=== PATIENT | female | born 1975 | race Caucasian/White ===

== ENCOUNTER → 2020-04-24 09:59 | Outpatient (CLI) | payer SELFPAY | PROVIDERS: Visit Provider Emergency Medicine | DX: Z00.00 Encounter for general adult medical examination without abnormal findings (principal) ==

== ENCOUNTER → 2020-10-16 17:16 | Outpatient (CLI) | payer BC, SELFPAY ==
[2020-10-16 19:06] LABS: Basophils # 0.1 K/mm3 (0-0.2); Eosinophils # 0.1 K/mm3 (0.0-0.4); Eosinophils % 1.7 % (0.1-12.0); Hematocrit 44.3 % (37.0-47.0); Hemoglobin 14.5 g/dL (12.2-16.2); Lymphocytes # 2.5 K/mm3 (0.7-4.5); Mean Corpuscular HGB Conc 32.8 g/dL (31.8-35.4); Mean Corpuscular Hemoglobin 31.7 pg (27.0-31.2); Mean Corpuscular Volume 96.9 fl (81-99); Mean Platelet Volume 11.8 fl (7.4-10.4); Monocytes # 0.4 K/mm3 (0.1-1.0); Monocytes % 6.4 % (1.7-9.3); Neutrophils # 2.7 K/mm3 (1.8-7.8); Neutrophils % 46.9 % (37.0-80.0); Platelet Count 281 K/mm3 (142-424); Red Blood Count 4.57 M/mm3 (4.20-5.40); Red Cell Distribution Width 14.4 % (11.5-17.5); White Blood Count 5.6 K/mm3 (4.8-10.8)
[2020-10-16 19:25] LABS: Alanine Aminotransferase 24 U/L (12-78); Albumin Level 4.5 g/dl (3.5-5.0); Albumin/Globulin Ratio 1.4 (1.1-1.8); Alkaline Phosphatase 105 U/L (38-126); Anion Gap 15.9 mEq/L (5-15); Aspartate Amino Transferase 27 U/L (14-36); Bilirubin,Total 0.6 mg/dl (0.2-1.3); Blood Urea Nitrogen 13 mg/dl (7-17); Calcium 9.8 mg/dl (8.4-10.2); Carbon Dioxide 29 mmol/L (22.0-30.0); Chloride 100 mmol/L (98-107); Estimated Glomerular Filt Rate 91 ml/min (>60); GFR (African American) 111 ML/MIN (>60); Globulin 3.3 g/dL (1.3-3.2); Glucose 72 mg/dl (74-100); Potassium 4.9 mmoL/L (3.5-5.1); Sodium 140 mmol/L (136-145); Total Protein,Serum 7.8 g/dl (6.3-8.2)
[2020-10-16 19:30] LABS: C-Reactive Protein 7.3 mg/L (0-4)
[2020-10-16 19:36] LABS: Erythrocyte Sedimentation Rate 91 mm/hr (0-20)
[2020-10-16 19:45] LABS: 25-OH Vitamin D, Total 21.6 ng/mL (30-100)
[2020-10-16 19:56] LABS: Thyroid Stimulating Hormone 1.44 uIU/mL (0.465-4.68)
[2020-10-16 20:15] LABS: Vitamin B12 246 pg/mL (239-931)
[2020-10-19 15:05] LABS: Anti-Centromere B Antibodies <0.2 AI (0.0-0.9); Anti-Jo-1 <0.2 AI (0.0-0.9); Anti-Smith Antibody <0.2 AI (0.0-0.9); Antichromatin Antibodies <0.2 AI (0.0-0.9); Antiscleroderma-70 Antibodies <0.2 AI (0.0-0.9); RNP Antibodies 0.2 AI (0.0-0.9); Sjogren's Anti-SS-A <0.2 AI (0.0-0.9); Sjogren's Anti-SS-B <0.2 AI (0.0-0.9)
[2020-10-19 17:19] LABS: RA Latex Turbid. <10.0 IU/mL (0.0-13.9)
[2020-10-19 17:21] LABS: Anti-Cyclic Citrullinated Pept 3 units (0-19); Anti-DNA (DS) Ab Qn <1 IU/mL (0-9)
== END ==
PROVIDERS: Visit Provider Physician Assistant
DX: M25.50 Pain in unspecified joint (principal); E55.9 Vitamin D deficiency, unspecified
CPT/HCPCS: 80053; 82306; 82607; 84443; 85025; 85651; 86140; 86200; 86225; 86235; 86431; 86618

== ENCOUNTER 2021-10-24 08:03 | Emergency (ER) | payer OTHER, SELFPAY ==
[2021-10-24 08:11] VITALS: BP 130/89; PULSE 83; RESP 18; TEMP 37.1; O2SAT 96; BMI 29.2
--- NOTE | 2021-10-24 08:34 | HMH.EDEYEP ---
ED Disposition Clinical Impression: Zoster Qualifiers: Herpes zoster complications: without complications Qualified Code(s): B02.9 - Zoster without complications Disposition: Home, Self-Care Condition on Discharge: Good Instructions: DI for Shingles Prescriptions: Erythromycin Base [Erythromycin 1gm opth ointment] 1 applicatio EYE-RIGHT QID 5 Days #1 gm Transmission Status: Pending to [facility] methylPREDNISolone [Medrol 4mg tab] 4 mg PO DIRECTED #21 tab Transmission Status: Pending to [facility] Valacyclovir HCl [Valacyclovir] 1,000 mg PO TID 7 Days #21 tab Transmission Status: Pending to [facility] Referrals: Ashley Fermin PA [Primary Care Provider] - Corina Chaidez [Other] - Critical Care Critical Care Time: No Attestation: On 10/24/21, the high probability of a clinically significant, sudden or life threatening deterioration of the following system(s) required my full and direct attention, intervention and personal management. The time I documented below is in addition to time spent performing reported procedures but includes the following listed in this critical care notation. Medical Decision Making - Medical Records Medical records reviewed: Yes: I reviewed the patient's medical records. - Angelito Inquiry Pt receiving controlled substance: No Vital Signs: 10/24/21 08:11 Temperature 98.7 F Temperature Source Oral Pulse Rate [Right Radial] 83 Respiratory Rate 18 Blood Pressure [Right Arm] 130/89 Blood Pressure Mean [Right Arm] 102 Blood Pressure Source [Right Arm] Automatic Cuff Blood Pressure Position [Right Arm] Supine 02 Sat by Pulse Oximetry 96 Oxygen Delivery Method Room Air Orders (Tests/Meds): ED MEDICATIONS Discontinued Medications Generic Name Dose Route Start Last Admin Trade Name Freq PRN Reason Stop Dose Admin Ibuprofen 800 mg 10/24/21 08:21 10/24/21 08:30 Ibuprofen 400 Mg Tablet PO 10/24/21 08:22 800 mg ONCE ONE Administration Prednisone 60 mg 10/24/21 08:21 10/24/21 08:30 Prednisone 20mg Tab PO 10/24/21 08:22 60 mg ONCE ONE Administration Medical Decision Narrative: 46-year-old female presented to the emergency department with a rash on the right side of her face. Findings are very consistent with zoster. Patient states that she has had this before in the past. Appears to be isolated to her face, is extending towards the eye. There is no ocular involvement on our initial evaluation and examination. However given the close nature, I do believe she requires a follow-up with ophthalmology. We will place the patient on antiviral as well as steroids. Patient is to proceed to ophthalmology upon discharge. Given strict return precautions. Verbalized understanding. Eye Problem HPI - General Chief complaint: Eye Problems Stated complaint: right eye pain Time Seen by Provider: 10/24/21 08:34 Mode of Arrival: Ambulatory Limitations: No Limitations Description of Symptoms (Recalled from ER Triage Doc. by RN): Pt stated that on thursday she started with a few red bumps on the right side of her face. She states that it has progressivly gotten worse over the last few days. She has had a hx of shingles before. She woke up this morning with her eye swelling, red, burning, and bumps. - History of Present Illness HPI Narrative: Is a 46-year-old female presented to the emergency department with a rash on the right side of her face. The patient states that she has had shingles before in the same area and it feels like that. She states that yesterday she noticed some blisters popping up on the right side of her face and going towards her right eye. States that they are very painful. She not been having any discharge from the area. Patient is not having any fevers or chills. She denies any change in vision or eye pain. States that when she woke up this morning she did have some crusting of her eye.
[2021-10-24 08:58] VITALS: BP 130/89; PULSE 70; RESP 16; TEMP 36.8; O2SAT 98
== END 2021-10-24 08:59 | disposition home or self-care (01) ==
PROVIDERS: Emergency Provider Emergency Medicine; PCP Physician Assistant
DX: B02.9 Zoster without complications (principal)
CPT/HCPCS: 99281

== ENCOUNTER → 2021-12-18 13:53 | Outpatient (CLI) | payer OTHER, SELFPAY | PROVIDERS: Visit Provider Nurse Practitioner | DX: Z20.822 Contact with and (suspected) exposure to COVID-19 (principal) | CPT/HCPCS: C9803; U0003; U0005 ==

== ENCOUNTER → 2021-12-20 11:08 | Outpatient (CLI) | payer OTHER, SELFPAY ==
[2021-12-20 11:16] LABS: Influenza A, PCR Not Detected (NotDetected); Influenza B, PCR Not Detected (NotDetected)
[2021-12-20 11:47] LABS: Coronavirus 19, PCR Detected (NotDetected)
== END ==
PROVIDERS: Visit Provider Nurse Practitioner
DX: U07.1 COVID-19 (principal)
CPT/HCPCS: C9803; U0003; U0005

== ENCOUNTER → 2022-01-30 11:40 | Outpatient (CLI) | payer OTHER, SELFPAY ==
[2022-01-30 12:21] LABS: Basophils # 0.1 K/mm3 (0-0.2); Basophils % 1.6 % (0.1-2.0); Eosinophils # 0.1 K/mm3 (0.0-0.4); Eosinophils % 1.4 % (0.1-12.0); Hematocrit 43.4 % (37.0-47.0); Lymphocytes # 2.4 K/mm3 (0.7-4.5); Lymphocytes % 41.6 % (10-50); Mean Corpuscular HGB Conc 32.2 g/dL (31.8-35.4); Mean Corpuscular Hemoglobin 31.4 pg (27.0-31.2); Mean Corpuscular Volume 97.5 fl (81-99); Mean Platelet Volume 9.5 fl (7.4-10.4); Monocytes # 0.3 K/mm3 (0.1-1.0); Monocytes % 5.6 % (1.7-9.3); Neutrophils # 2.9 K/mm3 (1.8-7.8); Neutrophils % 49.7 % (37.0-80.0); Platelet Count 282 K/mm3 (142-424); Red Blood Count 4.45 M/mm3 (4.20-5.40); Red Cell Distribution Width 13.4 % (11.5-17.5); White Blood Count 5.9 K/mm3 (4.8-10.8)
[2022-01-30 13:02] LABS: Alanine Aminotransferase 26 U/L (12-78); Albumin Level 4.3 g/dl (3.5-5.0); Albumin/Globulin Ratio 1.4 (1.1-1.8); Alkaline Phosphatase 94 U/L (38-126); Anion Gap 11.5 mEq/L (5-15); Aspartate Amino Transferase 25 U/L (14-36); Bilirubin,Total 0.6 mg/dl (0.2-1.3); Blood Urea Nitrogen 12 mg/dl (7-17); Calcium 9.1 mg/dl (8.4-10.2); Carbon Dioxide 29 mmol/L (22.0-30.0); Chloride 102 mmol/L (98-107); Chol/HDL Ratio 5.6 (1-3.5); Cholesterol 220 mg/dl (140-200); Estimated Glomerular Filt Rate 109 ml/min (>60); GFR (African American) 131 ML/MIN (>60); Glucose 98 mg/dl (74-100); HDL Cholesterol 39 mg/dl (40-60); Potassium 4.5 mmoL/L (3.5-5.1); Sodium 138 mmol/L (136-145); Total Protein,Serum 7.3 g/dl (6.3-8.2); Triglycerides 131 mg/dl (30-150); VLDL Cholesterol 26 mg/dL (0-40)
[2022-01-30 13:13] LABS: Direct LDL Cholesterol 143.66 mg/dL (100-129)
[2022-01-30 13:18] LABS: 25-OH Vitamin D, Total 19.3 ng/mL (30-100)
[2022-01-30 13:33] LABS: Thyroid Stimulating Hormone 1.65 uIU/mL (0.465-4.68)
[2022-01-30 13:51] LABS: Vitamin B12 292 pg/mL (239-931)
== END ==
PROVIDERS: Visit Provider Physician Assistant
DX: Z00.00 Encounter for general adult medical examination without abnormal findings (principal); R53.83 Other fatigue
CPT/HCPCS: 80053; 80061; 82306; 82607; 84443; 85025

== ENCOUNTER → 2022-02-03 13:00 | Outpatient (CLI) | payer OTHER, SELFPAY ==
--- NOTE | 2022-02-03 13:00 | MM_ITS ---
PROCEDURE INFORMATION: Exam: MG Bilateral Screening 3D Mammography Exam date and time: 02/03/2022 1:00 PM Age: 47 years old Clinical indication: Breast cancer screening TECHNIQUE: Imaging protocol: Bilateral Screening tomosynthesis and 2D mammography including computer-aided detection (CAD) when performed. COMPARISON: MG MM MAMMO DIGITAL KLEBER SCREEN BILAT 06/28/2019 10:58 AM FINDINGS: MAMMOGRAPHY: Breast composition: The breast tissue is heterogeneously dense, which may obscure small masses. Mass: None. Architectural distortion: None. Calcifications: No suspicious calcifications. Asymmetric density: None. Skin thickening: None. Axillary adenopathy: None. IMPRESSION: No mammographic evidence of malignancy. Annual screening is recommended unless otherwise clinically indicated. ASSESSMENT: BI-RADS Category 1: Negative
== END ==
PROVIDERS: PCP Physician Assistant; Visit Provider Physician Assistant
DX: Z12.31 Encounter for screening mammogram for malignant neoplasm of breast (principal)
CPT/HCPCS: 77063; 77067

== ENCOUNTER → 2022-06-14 18:36 | Outpatient (CLI) | payer OTHER, SELFPAY ==
[2022-06-14 18:49] LABS: Coronavirus 19, PCR Not Detected (NotDetected); Influenza A, PCR Not Detected (NotDetected); Influenza B, PCR Not Detected (NotDetected)
== END ==
PROVIDERS: PCP Physician Assistant; Visit Provider Nurse Practitioner Family
DX: Z20.822 Contact with and (suspected) exposure to COVID-19 (principal)
CPT/HCPCS: C9803; U0003; U0005

== ENCOUNTER 2022-10-12 16:00 | Emergency (ER) | payer OTHER, SELFPAY ==
[2022-10-12 16:01] VITALS: BP 111/83; PULSE 108; RESP 18; TEMP 36.7; O2SAT 97; BMI 29.9
--- NOTE | 2022-10-12 16:29 | XR_ITS ---
PROCEDURE INFORMATION: Exam: XR Left Shoulder Exam date and time: 10/12/2022 4:27 PM Age: 47 years old Clinical indication: Injury or trauma; Sprain or strain; Shoulder; Left; Additional info: Injury-- TECHNIQUE: Imaging protocol: Radiologic exam of the Left shoulder. Views: 2 or more views. COMPARISON: No relevant prior studies available. FINDINGS: Bones/joints: Osseous structures are unremarkable. Joint surfaces are preserved. There is no fracture, malalignment or underlying osseous lesion detected. Soft tissues: Normal. IMPRESSION: 1. Normal left shoulder 2. The
--- NOTE | 2022-10-12 17:02 | HMH.EDGENADL ---
Discharge Plan Disposition Patient Disposition: Home, Self-Care Condition: Good Chief Complaint: PAIN Prescriptions Prescriptions: No Action phentermine [Adipex-P] 37.5 mg tablet 37.5 mg PO DAILY Qty: 30 0RF Rx Instructions: must administer 30 minutes before or 1-2 hours after breakfast citalopram 20 mg tablet 20 mg PO DAILY Qty: 90 3RF cholecalciferol (vitamin D3) 1,250 mcg (50,000 unit) capsule 1,250 mcg PO WEEKLY Qty: 14 0RF cholecalciferol (vitamin D3) 25 mcg (1,000 unit) capsule 25 mcg PO DAILY Qty: 90 3RF Referrals Follow up/Referrals: Ashley Fermin PA [Primary Care Provider] - See instructions Carson Camacho DO [Staff Physician] - See instructions Activity Restrictions/Add. Instructions Additional Instructions/Restrictions: Ibuprofen as needed for pain. Follow-up with orthopedics if not improved in 4 to 5 days. Clinical Impressions Clinical Impression: Left shoulder strain Instructions Patient Instructions: DI for Shoulder Sprain Discharge ED Provider: [facility] General Adult HPI General Stated complaint: Hurt left shoulder moving patient from stretch Time Seen by Provider: 10/12/22 17:14 History of Present Illness HPI narrative: Patient complains of a left shoulder injury. 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 The patient grabbed her left upper arm and pulled on it as she was pushing the patient. She feels like it strained her left shoulder and she has had achiness anteriorly since. She feels able to work and states she does not want to miss work. Related Data Previous Rx's Medication Instructions Recorded citalopram 20 mg tablet 20 mg PO DAILY #90 tabs 01/22/22 cholecalciferol (vitamin D3) 1,250 1,250 mcg PO WEEKLY #14 caps 02/05/22 mcg (50,000 unit) capsule cholecalciferol (vitamin D3) 25 25 mcg PO DAILY #90 caps 02/05/22 mcg (1,000 unit) capsule phentermine 37.5 mg tablet 37.5 mg PO DAILY #30 tabs 10/07/22 (Adipex-P) Allergies Allergy/AdvReac Type Severity Reaction Status Date / Time codeine Allergy Mild Vomiting Verified 10/07/22 10:12 Sulfa (Sulfonamide AdvReac Mild Rash Verified 10/07/22 10:12 Antibiotics) PFSH PFSH Medical History Anxiety and depression Obesity Social History Smoking Status: Never smoker alcohol intake: never substance use type: denies use current occupational status: employed Travel in the last 8 weeks: None ROS Obtained: Yes Systems reviewed as appropriate & no additional complaints except as documented Constitutional Constitutional: Denies weakness Musculoskeletal Musculoskeletal: Reports arthralgias (Left shoulder) and Denies numbness Neurologic Neurologic: Denies numbness and Denies weakness Physical Exam General General appearance: alert and in no apparent distress Chest Chest inspection: Present normal inspection and symmetric chest wall rise Respiratory Respiratory exam: Absent respiratory distress Cardiovascular Cardiovascular exam: Present regular rate Expanded Upper Extremity Exam Left: Shoulder exam: Present normal inspection, full ROM and tenderness; Absent swelling, ecchymosis, deformity, crepitus, dislocation or tenderness over AC joint Comment: Anterior shoulder tenderness. Full range of motion. Neurovascular intact. Neurological Exam Neurological exam: Present alert and oriented X3 Psychiatric Psychiatric exam: Present normal affect and normal mood Skin Skin exam: Present warm and dry Medical Decision Making Angelito Inquiry Pt receiving controlled substance: No Orders (Tests/Meds): ORDERS Category Date Time Status Shoulder XR left minimum 2 views [XR shoulder LT min 2V Exams 10/12/22 16:29 Completed ] Stat Radiology Data #1: Image(s): Shylatelly
--- NOTE | 2022-10-12 17:16 | PC.NURSE ---
contacted lab about drug screen needed
[2022-10-12 18:11] VITALS: BP 111/83; PULSE 108; RESP 18; TEMP 36.7; O2SAT 97
== END 2022-10-12 18:12 | disposition home or self-care (01) ==
PROVIDERS: Emergency Provider Emergency Medicine; PCP Physician Assistant
DX: S46.012A Strain of muscle(s) and tendon(s) of the rotator cuff of left shoulder, initial encounter (principal); E66.9 Obesity, unspecified; Z68.30 Body mass index [BMI] 30.0-30.9, adult; F32.A Depression, unspecified; F41.9 Anxiety disorder, unspecified; Z79.899 Other long term (current) drug therapy; Z88.2 Allergy status to sulfonamides; Z88.5 Allergy status to narcotic agent
CPT/HCPCS: 73030; 99283

== ENCOUNTER → 2022-11-28 08:13 | Outpatient (CLI) | payer OTHER, SELFPAY ==
--- NOTE | 2022-11-28 08:13 | MR_ITS ---
FINAL REPORT TECHNIQUE: Multiplanar MR without contrast CLINICAL HISTORY: weakness and shoulder pain since moving patient on October 12. limited rom. FINDINGS: Marrow signal: Unremarkable Glenohumeral joint: Physiologic effusion. No significant degenerative changes. AC joint: No obvious impingement. No significant hypertrophic changes. Rotator cuff: No evidence of tear Labrum: Normal morphology without tear Biceps tendon: Intra-articular long head biceps tendon intact. IMPRESSION: No evidence of rotator cuff or labral tear. Reviewed, Interpreted and Dictated by Dale Saravia MD Transcribed by Marian Amezquita Authenticated and [facility]
== END ==
PROVIDERS: PCP Physician Assistant; Visit Provider Orthopaedic Surgery
DX: M25.512 Pain in left shoulder (principal); S46.912A Strain of unspecified muscle, fascia and tendon at shoulder and upper arm level, left arm, initial encounter
CPT/HCPCS: 73221

== ENCOUNTER 2023-02-03 08:00 | Outpatient (RCR) | payer OTHER, SELFPAY ==
--- NOTE | 2022-12-30 11:23 | HMH.OTOPEV ---
OT Inpatient Evaluation Rehab OT Outpatient Eval Start: 12/30/22 10:28 Freq: Status: Active Protocol: Document 12/30/22 10:29 RMMARI (Rec: 12/30/22 11:23 [facility]ADET[facility] [id number]) E-signed By Sharifa Jackson, OT Outpatient Therapy Subjective History Subjective History Pt is seen this date (12/30/22) for OT inital evaluation for L shoulder pain and decreased AROM. Pt recalls injuring the L shoulder on 10/12/22 when transferring a pt and said pt grabbed on her shoulder and pushed. Pt had an MRI completed ~ 2 weeks ago on L shoulder with Glenohumeral joint: Physiologic effusion. 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 She is R hand dominant. Pt has a past medical history of anemia and cerevical cancer. Chief Complaint Pain,Stiff,Weakness Symptom Type Ache,Throb,Sharp,Burning Symptoms Relieved By OTC Meds Symptoms Aggravated By Physical Activity,Lifting Prior Functional Limitations None Current Functional Limitations Reaching,Lifting,Housework, Dressing,Sleeping Symptom Description Constant but Variable Level of pain today (0-10) 2 Pain scale - at its best (0-10) 2 Pain scale - at its worst (0-10) 7 Shoulder/Elbow Eval Shoulder Objective Measurements Shoulder ROM Left Shoulder Abduction Active Range of 70 Motion (degrees) Shoulder Flexion Active Range of Motion 105 (degrees) Query Text: Shoulder External Rotation Active Range 40 of Motion (degrees) Shoulder Internal Rotation Active Range 50 of Motion (degrees) pain with active ROM shoulder exam left standard pain with passive ROM shoulder exam left standard decreased ROM shoulder exam standard left Shoulder MMT Shoulder Abduction Strength Grade 3 Fair Shoulder Flexion Strength Grade 3- Fair- Shoulder External Rotation Strength 3- Fair- Grade Shoulder Internal Rotation Strength 3 Fair Grade Shoulder Strength Patient Testing Sitting Position
--- NOTE | 2023-01-29 11:39 | HMH.OTOPEV ---
OT Inpatient Evaluation Rehab OT Outpatient Eval Start: 12/30/22 10:28 Freq: Status: Active Protocol: Document 12/30/22 10:29 RMMARI (Rec: 12/30/22 11:23 RMJADESELECT [facility]ICAL [facility]AWComfort [id number]) E-signed By Sharifa Jackson, OT Outpatient Therapy Subjective History Subjective History Pt is seen this date (12/30/22) for OT inital evaluation for L shoulder pain and decreased AROM. Pt recalls injuring the L shoulder on 10/12/22 when transferring a pt and said pt grabbed on her shoulder and pushed. Pt had an MRI completed ~ 2 weeks ago on L shoulder with Glenohumeral joint: Physiologic effusion. 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 She is R hand dominant. Pt has a past medical history of anemia and cerevical cancer. Chief Complaint Pain,Stiff,Weakness Symptom Type Ache,Throb,Sharp,Burning Symptoms Relieved By OTC Meds Symptoms Aggravated By Physical Activity,Lifting Prior Functional Limitations None Current Functional Limitations Reaching,Lifting,Housework, Dressing,Sleeping Symptom Description Constant but Variable Level of pain today (0-10) 2 Pain scale - at its best (0-10) 2 Pain scale - at its worst (0-10) 7 Shoulder/Elbow Eval Shoulder Objective Measurements Shoulder ROM Left Shoulder Abduction Active Range of 70 Motion (degrees) Shoulder Flexion Active Range of Motion 105 (degrees) Query Text: Shoulder External Rotation Active Range 40 of Motion (degrees) Shoulder Internal Rotation Active Range 50 of Motion (degrees) pain with active ROM shoulder exam left standard pain with passive ROM shoulder exam left standard decreased ROM shoulder exam standard left Shoulder MMT Shoulder Abduction Strength Grade 3 Fair Shoulder Flexion Strength Grade 3- Fair- Shoulder External Rotation Strength 3- Fair- Grade Shoulder Internal Rotation Strength 3 Fair Grade Shoulder Strength Patient Testing Sitting Position
== END 2023-02-03 08:05 | disposition home or self-care (01) ==
LOC: OT 08:00
PROVIDERS: Visit Provider Orthopaedic Surgery
DX: M25.512 Pain in left shoulder (principal)
CPT/HCPCS: 97010; 97014; 97035; 97110; 97140; 97164; 97166; 97530; G0283

== ENCOUNTER → 2023-02-12 10:59 | Outpatient (CLI) | payer OTHER, SELFPAY ==
--- NOTE | 2023-02-12 11:00 | MM_ITS ---
PROCEDURE INFORMATION: Exam: MG Bilateral Screening 3D Mammography Exam date and time: 02/12/2023 11:06 AM Age: 48 years old Clinical indication: Screening. Maternal aunts as well as maternal and paternal grandmothers had breast cancer. TECHNIQUE: Imaging protocol: Bilateral Screening tomosynthesis and 2D mammography including computer-aided detection (CAD) when performed. Limited positioning related to mobility impairment, particularly related to the left shoulder with other no pectoralis muscle included in the MLO projection. COMPARISON: 1. MG MM DIG SCREENING MAMM BI W/CAD 02/03/2022 12:54 PM 2. MG MM MAMMO DIGITAL KLEBER SCREEN BILAT 10/03/2020 8:15 AM 3. MG MM MAMMO DIGITAL KLEBER SCREEN BILAT 06/28/2019 10:58 AM FINDINGS: MAMMOGRAPHY: Breast composition: The breasts are heterogeneously dense, which may obscure small masses. Mass: None. Architectural distortion: None. Calcifications: No suspicious calcifications. Asymmetric density: None. Skin thickening: None. Axillary adenopathy: None. IMPRESSION: See comment Note limitation to positioning in the left MLO projection, suggest recall for left sonography particularly in the upper outer breast/axilla. No mammographic evidence of malignancy. ASSESSMENT: BI-RADS Category 0: Incomplete- Need Additional Imaging Evaluation and/or Prior Mammograms for Comparison
== END ==
PROVIDERS: PCP Physician Assistant; Visit Provider Physician Assistant
DX: Z12.31 Encounter for screening mammogram for malignant neoplasm of breast (principal)
CPT/HCPCS: 77063; 77067

== ENCOUNTER → 2023-03-04 12:36 | Outpatient (CLI) | payer OTHER, SELFPAY ==
--- NOTE | 2023-03-04 12:39 | US_ITS ---
PROCEDURE INFORMATION: Exam: US Left Breast, Complete Exam date and time: 03/04/2023 12:50 PM Age: 48 years old Clinical indication: Limited mammographic visualization of posterior tissue TECHNIQUE: Imaging protocol: Complete ultrasound of all four quadrants of the left breast and the retroareolar regions, including ultrasound of the axilla when performed. COMPARISON: MG MM DIG SCREENING MAMM BI W/CAD 02/12/2023 11:06 AM FINDINGS: Breast: Sonographic images of the left breast including the retroareolar region, all 4 quadrants and the axilla do not demonstrate any solid or cystic masses. No architectural distortion or acoustical shadowing. No skin thickening or axillary adenopathy. IMPRESSION: No sonographic evidence of malignancy. Annual screening is recommended unless otherwise clinically indicated. ASSESSMENT: BI-RADS Category 1: Negative
== END ==
PROVIDERS: PCP Physician Assistant; Visit Provider Physician Assistant
DX: R92.8 Other abnormal and inconclusive findings on diagnostic imaging of breast (principal)
CPT/HCPCS: 76641

== ENCOUNTER → 2023-03-16 08:48 | Outpatient (CLI) | payer OTHER, SELFPAY ==
--- NOTE | 2023-03-16 09:03 | US_ITS ---
FINAL REPORT CLINICAL HISTORY: stomach pain FINDINGS: Sonographic images of the right upper quadrant were obtained. The pancreas is partially obscured.The liver is fatty infiltrated. Echogenic focus is seen along the gallbladder wall. Uncertain if this represents stone or focal cholesterolosis. There is a small amount of sludge. There is no evidence of biliary ductal dilatation .The common duct measures 2 mm. Limited images of the right kidney are unremarkable. IMPRESSION: Questionable gallstone versus cholesterolosis. Recommend follow-up ultrasound. Reviewed, Interpreted and Dictated by Ishmael Fischer III, MD Transcribed by Savita Mccullough Authenticated and [facility]
== END ==
PROVIDERS: PCP Physician Assistant; Visit Provider Physician Assistant
DX: R10.9 Unspecified abdominal pain (principal)
CPT/HCPCS: 76705

== ENCOUNTER → 2023-03-18 10:46 | Outpatient (CLI) | payer OTHER, SELFPAY ==
[2023-03-18 12:07] LABS: Chloride 101 mmol/L (98-107)
[2023-03-18 12:08] LABS: Sodium 139 mmol/L (136-145)
[2023-03-18 12:10] LABS: Alanine Aminotransferase 16 U/L (12-78); Aspartate Amino Transferase 20 U/L (14-36); Blood Urea Nitrogen 9 mg/dl (7-17); Estimated Glomerular Filt Rate 90 ml/min (>60); GFR (African American) 109 ML/MIN (>60)
[2023-03-18 12:11] LABS: Albumin Level 4.1 g/dl (3.5-5.0); Albumin/Globulin Ratio 1.3 (1.1-1.8); Alkaline Phosphatase 74 U/L (38-126); Bilirubin,Total 0.5 mg/dl (0.2-1.3); Calcium 9.1 mg/dl (8.4-10.2); Carbon Dioxide 31 mmol/L (22.0-30.0); Globulin 3.1 g/dL (1.3-3.2); Glucose 89 mg/dl (74-100); Total Protein,Serum 7.2 g/dl (6.3-8.2)
[2023-03-18 12:34] LABS: Basophils % 0.5 % (0.1-2.0); Eosinophils # 0.1 K/mm3 (0.0-0.4); Eosinophils % 1.2 % (0.1-12.0); Hematocrit 42.6 % (37.0-47.0); Hemoglobin 13.7 g/dL (12.2-16.2); Lymphocytes # 2.2 K/mm3 (0.7-4.5); Lymphocytes % 35.1 % (10-50); Mean Corpuscular HGB Conc 32.1 g/dL (31.8-35.4); Mean Corpuscular Volume 96.5 fl (81-99); Mean Platelet Volume 9.3 fl (7.4-10.4); Monocytes # 0.4 K/mm3 (0.1-1.0); Monocytes % 6.4 % (1.7-9.3); Neutrophils # 3.6 K/mm3 (1.8-7.8); Neutrophils % 56.9 % (37.0-80.0); Platelet Count 243 K/mm3 (142-424); Red Blood Count 4.41 M/mm3 (4.20-5.40); Red Cell Distribution Width 12.9 % (11.5-17.5); White Blood Count 6.3 K/mm3 (4.8-10.8)
== END ==
PROVIDERS: PCP Physician Assistant; Visit Provider Surgery
DX: Z01.812 Encounter for preprocedural laboratory examination (principal); K80.20 Calculus of gallbladder without cholecystitis without obstruction
CPT/HCPCS: 36415; 80053; 85025

== ENCOUNTER 2023-03-19 07:03 | Day surgery (SDC) | payer OTHER, SELFPAY ==
[2023-03-19] VITALS (11 sets, daily range): BP systolic 98–123; BP diastolic 62–85; PULSE 78–96; RESP 16–18; TEMP 36.4–43; O2SAT 92–97; BMI 28.3
--- NOTE | 2023-03-19 08:24 | EXP.ANES.CKL ---
[facility] Disclaimer: The information contained in this section may have been updated after the patient was seen, as this information can be updated by other users. Medical History Anxiety and depression Obesity Surgical History (Updated 03/19/23 @ 07:21 by Moi Jones RN) History of total hysterectomy [place] teeth extracted Family History (Updated 03/19/23 @ 07:21 by Moi Jones RN) Other Family history of cancer Social History (Updated 03/19/23 @ 07:22 by Moi Jones RN) Smoking Status: Never smoker alcohol intake: never substance use type: denies use current occupational status: employed Travel in the last 8 weeks: None [facility] Anesthesia Checklist Patient Identification Patient Identification: Arm Band Structural Data Admitted From: Home Planned Operative Procedure/s: Laparoscopic Cholecystectomy Consent for Planned Operative Procedure(s) Verified: Yes Verified Documents: Surgical Consent and History and Physical NPO Status Verified Time NPO: 00:00 Additional verifications Anesthesia Reactions: No (nausea) Hx Blood Transfusions: No Blood Transfusion Reaction: No Airway Assessment C-Spine Mobility Assessed: Yes TMJ Mobility Assessed: Yes Dentition: Good Dentition Neurological Assessment Level of Consciousness: Awake and Alert Anesthesia Plan Anesthesia Risk discussed: Yes Anesthesia Plan: Verified ASA Class: I Anesthesia Type: General
--- NOTE | 2023-03-19 09:00 | EXP.OP.NOTE ---
Date of procedure: 03/19/23 Pre-op Diagnosis:: Chronic calculus cholecystitis Post-op Diagnosis:: Same Procedure performed:: Laparoscopic cholecystectomy Surgeon:: Steve Cook MD INSPECTOR PRECISION:: Gerry Cotton Anesthesia: GREGORIA Estimated blood loss (mL): 15 Operative findings:: Infundibular thickening Operative note:: After informed consent was obtained, the patient was taken to the operating room and placed in the supine position. General anesthesia was induced and the abdomen was prepped and draped in a sterile fashion. After infiltration with local anesthetic an infraumbilical incision was made. A Veress needle was placed in position. The abdomen was insufflated. A 5 mm optical trocar was placed in position. Under direct visualization, a 12 mm trocar was placed in the subxiphoid position and 2 additional 5 mm trocars were placed in the right upper quadrant. The gallbladder was elevated up and over the liver margin. The tissue around the cystic duct was carefully dissected. 3 clips were placed proximally and the duct was transected with harmonic michaela. Harmonic michaela were then utilized to dissect the gallbladder away from the liver margin with careful attention to the control of the cystic artery. The gallbladder was placed in a retrieval bag and removed through the subxiphoid trocar site. The right upper quadrant was thoroughly irrigated. No active bleeding or bile leak was noted. Fascia at the subxiphoid trocar site was reapproximated utilizing the NeoClose device. The remaining trocars were removed. All wounds were irrigated and skin was closed with 4-0 Monocryl in a subcuticular fashion. Steri-Strips were applied. The patient's anesthetic agents were reversed and extubation was completed prior to transfer to recovery in stable condition. Condition: stable Disposition: PACU Specimens:: Gallbladder and contents Complications:: No immediate
--- NOTE | 2023-03-19 09:03 | P.PNANES_ITS ---
[facility] Anesthesia Record Part I Anesthesia Record I Intake, IV Amount: 500 Estimated blood loss (mL): 10 Urine output (mL): 0 Blood Products used (#): none Blood Pressure: 123/75 SaO2: 92 Pulse Rate: 92 Respiratory Rate: 16 Temperature: 97.7 F Patient is:: Drowsy and Stable Stable to PACU at:: 09:00
--- NOTE | 2023-03-19 10:31 | P.PNANES_ITS ---
[facility] Anesthesia Record Part II Anesthesia Record Part II Discharge Time: 09:30 Destination: Surgical Day Care (OP Surgery) PACU nurse assessment reviewed?: Yes Patient Condition:: Good Anesthesia Complications:: None Swallowing reflex intact?: Yes Cyanosis?: No Blood Pressure: 117/85 Pulse Rate: 85 Temperature: 98.2 F Mental Status: Alert & Oriented Pain level:: 4 Nausea and/or vomitting:: None Intake, IV Amount: 0
== END 2023-03-19 10:20 | disposition home or self-care (01) ==
PROVIDERS: PCP Physician Assistant; Visit Provider Surgery
PROC: 0FT44ZZ Resection of Gallbladder, Percutaneous Endoscopic Approach (ICD-10-PCS; CPT 47562; principal; 2023-03-19 08:30)
DX: K80.10 Calculus of gallbladder with chronic cholecystitis without obstruction (principal)
CPT/HCPCS: 47562; 96374; J2405

== ENCOUNTER 2023-11-09 09:50 | Emergency (ER) | payer BC, SELFPAY ==
[2023-11-09 10:45] VITALS: BP 115/88; PULSE 119; RESP 18; TEMP 37.6; O2SAT 98; BMI 28.3
[2023-11-09 10:50] LABS: Influenza A, PCR Not Detected (NotDetected); Influenza B, PCR Not Detected (NotDetected)
--- NOTE | 2023-11-09 11:01 | EXP.UTC ---
Discharge Plan Disposition Patient Disposition: Home, Self-Care Condition: Good Prescriptions Prescriptions: No Action Ozempic 0.25 mg or 0.5 mg (2 mg/3 mL) pen injector See Rx Instructions .ROUTE .COMPLEX Qty: 3 0RF Dose Instruction: INJECT 0.25MG SUBCUTANEOUSLY ONCE A WEEK FOR 4 WEEKS, THEN 0.5MG WEEKLY Rx Instructions: INJECT 0.25MG SUBCUTANEOUSLY ONCE A WEEK FOR 4 WEEKS, THEN 0.5MG WEEKLY citalopram 20 mg tablet See Rx Instructions .ROUTE .COMPLEX Qty: 30 1RF Dose Instruction: Take 1 tablet by mouth once daily Rx Instructions: Take 1 tablet by mouth once daily cholecalciferol (vitamin D3) 25 mcg (1,000 unit) capsule 25 mcg PO DAILY cholecalciferol (vitamin D3) 1,250 mcg (50,000 unit) capsule 1,250 mcg PO WEEKLY Referrals Follow up/Referrals: Ashley Fermin PA [Primary Care Provider] - See instructions Activity Restrictions/Add. Instructions Additional Instructions/Restrictions: *Monitor Temp, Over the counter Motrin or Tylenol as directed/as needed Tylenol every 4 hours and Motrin every 6 hours (as long as your family doctor has told you that you can take it) for fever or pain. and straight to ER if unable to lower temp less than 101.0 after medication given *Warm salt water gargles may help to soothe the throat *Throat Lozenges? *Warm fluids like tea with honey may help to soothe the throat? *Sleep elevated *Humidifier/Vaporizer Follow up IMMEDIATELY for new or worsening symptoms or no Noticeable improvement over the next 48-72 hours. 911 for difficulty breathing or swallowing You were tested for today for Upper Respiratory Panel with COVID19 your test result should be back in the next 24hours, you may check your results on the [facility] If your COVID test is positive you must Quarantine for 5 days Clinical Impressions Clinical Impression: Viral syndrome Stand Alone Forms Stand Alone Forms: Work/School Release Instructions Patient Instructions: DI for COVID-19 (Suspected or Confirmed ), DI for Viral Syndrome Discharge ED Provider: Asha Houser [facility] HPI General Stated complaint: body aches, fever, cough, h/a Time Seen by Provider: 11/09/23 11:01 History of Present Illness Provider Complaint: Patient states that she has been having body aches, chills, headache, fever and cough States that she feels like she did when she had COVID before States that she took a home COVID test and it was positive so she came in to get an official test for her work Related Data Home Medications Medication Instructions Recorded Confirmed cholecalciferol (vitamin D3) 1,250 1,250 mcg PO WEEKLY Supplement 03/19/23 03/27/23 mcg (50,000 unit) capsule cholecalciferol (vitamin D3) 25 25 mcg PO DAILY Supplement 03/19/23 03/27/23 mcg (1,000 unit) capsule Previous Rx's Medication Instructions Recorded semaglutide 0.25 mg or 0.5 mg (2 See Rx Instructions .Route 06/01/23 mg/3 mL) subcutaneous pen injector .COMPLEX #3 mL (Ozempic) citalopram 20 mg tablet See Rx Instructions .Route 11/02/23 .COMPLEX #30 tabs Allergies Allergy/AdvReac Type Severity Reaction Status Date / Time codeine Allergy Mild Vomiting Verified 03/27/23 10:07 Sulfa (Sulfonamide AdvReac Mild Rash Verified 03/27/23 10:07 Antibiotics) acetaminophen [From Percocet] AdvReac Verified 03/27/23 10:07 oxycodone [From Percocet] AdvReac Verified 03/27/23 10:07 PFSH PFS Disclaimer: The information contained in this section may have been updated after the patient was seen, as this information can be updated by other users. Medical History (Updated 11/09/23 @ 11:06 by Asha Houser APRN) Anxiety and depression CCC (chronic calculous cholecystitis) Left shoulder strain Obesity Zoster Surgical History (Updated 03/27/23 @ 10:07 by BRITTNY Alvarado) History of laparoscopic cholecystectomy History of total
[2023-11-09 11:26] VITALS: BP 136/85; PULSE 88; RESP 18; TEMP 36.7; O2SAT 96
[2023-11-09 12:52] LABS: Coronavirus 19, PCR Detected (NotDetected)
== END 2023-11-09 11:26 | disposition home or self-care (01) ==
PROVIDERS: Emergency Provider Nurse Practitioner; PCP Physician Assistant
DX: U07.1 COVID-19 (principal); R51.9 Headache, unspecified; R50.9 Fever, unspecified; R05.9 Cough, unspecified; M79.18 Myalgia, other site
CPT/HCPCS: 87636; 99203; 99212; G0463

== ENCOUNTER 2024-07-27 18:54 | Outpatient (CLI) | payer BC, SELFPAY ==
[2024-07-27 18:39] LABS: Basophils # 0.1 K/mm3 (0-0.2); Basophils % 1.1 % (0.1-2.0); Eosinophils # 0.1 K/mm3 (0.0-0.4); Eosinophils % 2.6 % (0.1-12.0); Hematocrit 42.3 % (37.0-47.0); Hemoglobin 13.8 g/dL (12.2-16.2); Lymphocytes # 2.5 K/mm3 (0.7-4.5); Lymphocytes % 43.4 % (10-50); Mean Corpuscular HGB Conc 32.7 g/dL (31.8-35.4); Mean Corpuscular Hemoglobin 32.3 pg (27.0-31.2); Mean Corpuscular Volume 98.8 fl (81-99); Mean Platelet Volume 10.4 fl (7.4-10.4); Monocytes # 0.3 K/mm3 (0.1-1.0); Monocytes % 6.1 % (1.7-9.3); Neutrophils # 2.6 K/mm3 (1.8-7.8); Neutrophils % 46.8 % (37.0-80.0); Platelet Count 292 K/mm3 (142-424); Red Blood Count 4.28 M/mm3 (4.20-5.40); Red Cell Distribution Width 13.3 % (11.5-17.5); White Blood Count 5.6 K/mm3 (4.8-10.8)
[2024-07-27 19:08] LABS: Alanine Aminotransferase 25 U/L (12-78); Albumin Level 3.7 g/dl (3.5-5.0); Albumin/Globulin Ratio 1.2 (1.1-1.8); Alkaline Phosphatase 85 U/L (38-126); Anion Gap 9.2 mEq/L (5-15); Aspartate Amino Transferase 27 U/L (14-36); Bilirubin,Total 0.7 mg/dl (0.2-1.3); Blood Urea Nitrogen 10 mg/dl (7-17); Carbon Dioxide 27 mmol/L (22.0-30.0); Chloride 106 mmol/L (98-107); Chol/HDL Ratio 5.6 (1-3.5); Cholesterol 224 mg/dl (140-200); Estimated Glomerular Filt Rate 107 ml/min (>60); GFR (African American) 130 ML/MIN (>60); Globulin 3.1 g/dL (1.3-3.2); Glucose 95 mg/dl (74-100); HDL Cholesterol 40 mg/dl (40-60); Potassium 4.2 mmoL/L (3.5-5.1); Sodium 138 mmol/L (136-145); Total Protein,Serum 6.8 g/dl (6.3-8.2); Triglycerides 117 mg/dl (30-150); VLDL Cholesterol 23 mg/dL (0-40)
[2024-07-27 19:19] LABS: Direct LDL Cholesterol 156.36 mg/dL (100-129)
[2024-07-27 19:26] LABS: 25-OH Vitamin D, Total 31.8 ng/mL (30-100)
[2024-07-27 19:39] LABS: Thyroid Stimulating Hormone 1.79 uIU/mL (0.465-4.68)
[2024-07-27 21:07] LABS: Hemoglobin A1C 5.2 % (4.0-6.0)
== END 2024-07-27 23:59 | disposition home or self-care (01) ==
LOC: LAB.DROPOF 18:54
PROVIDERS: PCP Family Medicine; Visit Provider Family Medicine
DX: E66.09 Other obesity due to excess calories (principal); Z68.32 Body mass index [BMI] 32.0-32.9, adult
CPT/HCPCS: 80050; 80053; 80061; 82306; 83036; 84443; 85025

== ENCOUNTER 2024-07-28 08:03 | Outpatient (CLI) | payer BC, SELFPAY ==
--- NOTE | 2024-07-28 08:03 | MM_ITS ---
PROCEDURE INFORMATION: Exam: MG Bilateral Screening 3D Mammography Exam date and time: 07/28/2024 7:55 AM Age: 49 years old Clinical indication: Screening mammogram TECHNIQUE: Imaging protocol: Bilateral Screening tomosynthesis and 2D mammography including computer-aided detection (CAD) when performed. COMPARISON: 1. MG MM DIG SCREENING MAMM BI W/CAD 02/12/2023 11:06 AM 2. MG MM DIG SCREENING MAMM BI W/CAD 02/03/2022 12:54 PM 3. MG MM MAMMO DIGITAL KLEBER SCREEN BILAT 10/03/2020 8:15 AM 4. MG MM MAMMO DIGITAL KLEBER SCREEN BILAT 06/28/2019 10:58 AM FINDINGS: MAMMOGRAPHY: Breast composition: There are scattered areas of fibroglandular density. Mass: None. Architectural distortion: No new or suspicious architectural distortion. Calcifications: No new or suspicious calcifications are present Asymmetric density: No new or suspicious asymmetric density is present Skin thickening: None. Axillary adenopathy: None. IMPRESSION: No mammographic evidence of malignancy. Recommend annual screening mammography unless otherwise clinically indicated. ASSESSMENT: BI-RADS category 1: Negative.
== END 2024-07-28 23:59 | disposition home or self-care (01) ==
LOC: RAD 08:03
PROVIDERS: PCP Family Medicine; Visit Provider Family Medicine
DX: Z12.31 Encounter for screening mammogram for malignant neoplasm of breast (principal)
CPT/HCPCS: 77063; 77067

== ENCOUNTER 2024-11-17 10:11 | Emergency (ER) | payer BC, SELFPAY ==
[2024-11-17 10:45] VITALS: BP 112/81; PULSE 75; RESP 18; TEMP 36.7; O2SAT 98; BMI 30.9
--- NOTE | 2024-11-17 11:04 | ED_ITS ---
Discharge Plan Disposition Patient Disposition: Home, Self-Care Condition: Good Prescriptions Prescriptions: New methylprednisolone [Medrol (Harpreet)] 4 mg tablets,dose pack See Rx Instructions .Route .COMPLEX 6 Days Qty: 21 0RF Rx Instructions: taper pack; No Action citalopram 20 mg tablet See Rx Instructions .ROUTE .COMPLEX Qty: 90 2RF Dose Instruction: Take 1 tablet by mouth once daily Rx Instructions: Take 1 tablet by mouth once daily Referrals Follow up/Referrals: Cleo Fitzgerald APRN [Primary Care Provider] - See instructions Activity Restrictions/Add. Instructions Additional Instructions/Restrictions: *Ibuprofen stiven 6 hours with meal as needed for pain/inflammation *Remember you had a Toradol shot in the clinic today, which is similar to Motrin do do not take any for the next 8-10 hours *Not additional anti-inflammatory like motrin, aleve, advil with the above amount of ibuprofen. You can still take Tylenol every 4 hours as needed if you need something else for pain Start oral Medrol dose pack tomorrow Continue to do stretches *Keep this area active, no movement leads to more stiffness, However take it easy and avoid heavy lifting pushing or pulling *Follow up with you family doctor if no improvement for further treatment Clinical Impressions Clinical Impression: Sciatica of left side Instructions Patient Instructions: DI for Back Pain With Sciatica Print Language Print Language: Rwandan Discharge ED Provider: Asha Houser [facility] General Stated complaint: lower back and hip pain Mode of Arrival: Ambulatory Source of Information: Patient Limitations: No Limitations Time Seen by Provider: 11/17/24 11:04 Description of Symptoms (Recalled from Triage Doc. by RN): PATIENT C/O LOWER BACK AND LEFT HIP PAIN X 3 DAYS HEENT Symptoms (Recalled from RN notes): No Resp Symptoms (Recalled from RN notes): No Skin Symptoms (Recalled from RN notes): No MS Symptoms (Recalled from RN notes): Yes Functional Status (Recalled from RN notes): WL History of Present Illness Provider Complaint: Patient states that she has a hx of sciatica States that she has been having pain in her lower back going into her left hip area like she has when she has sciatica States that when this happens she has to come in and get a couple shots and steriod pack to help it Related Data Previous Rx's ?Medication ?Instructions ?Recorded citalopram 20 mg tablet See Rx Instructions .Route 07/27/24 .COMPLEX #90 tabs methylprednisolone 4 mg tablets in See Rx Instructions .Route 11/17/24 a dose pack (Medrol (Harpreet)) .COMPLEX 6 days #21 tabs Allergies Allergy/AdvReac Type Severity Reaction Status Date / Time codeine Allergy Mild Vomiting Verified 08/29/24 10:37 Sulfa (Sulfonamide AdvReac Mild Rash Verified 08/29/24 10:37 Antibiotics) acetaminophen (From Percocet) AdvReac Verified 08/29/24 10:37 oxycodone (From Percocet) AdvReac Verified 08/29/24 10:37 Worker's Comp Is this a Worker's Comp case?: No [facility] Disclaimer: The information contained in this section may have been updated after the patient was seen, as this information can be updated by other users. Medical History Adhesive capsulitis of left shoulder Biceps tendinitis of left shoulder Viral syndrome CCC (chronic calculous cholecystitis) Left shoulder strain Zoster Anxiety and depression Obesity Surgical History History of laparoscopic cholecystectomy [place] teeth extracted History of total hysterectomy Family History Other Family history of cancer Social History Smoking Status: Never smoker alcohol intake: never substance use type: denies use current occupational status: employed Travel in the last 8 weeks: None Have you lived/traveled outside [place] in past 30 days?: No Contact w/someone who lives/traveled outside [place] past 30 days?: No Exposure to someone with infectious disease in past 14 days?: No Do you have a fever (greater than 100.4 F or 38 C)?: No Have you tested positive for COVID-19: No Exposed to someone with COVID-19 in past 14 days?: No Do you have a sore throat?: No Do you have a cough?: No Do you have any weakness?: No Do you have any diarrhea?: No Are you experiencing any unusual bleeding?: No Do you have any muscle aches/pain?: No Do you have any abdominal pain?: No Are you experiencing loss of taste or smell?: No ROS Obtained: Yes All systems reviewed & no additional complaints except as documented and Yes Systems reviewed as appropriate & no additional complaints except as documented Constitutional Constitutional: Reports system reviewed and no additional complaints, except as documented and Reports as per HPI ENT Ears, Nose, Mouth, and Throat: Reports system reviewed and no additional complaints, except as documented and Reports as per HPI Cardiovascular Cardiovascular: Reports system reviewed and no additional complaints, except as documented and Reports as per HPI Respiratory Respiratory: Reports system reviewed and no additional complaints, except as documented and Reports as per HPI Gastrointestinal Gastrointestingal: Reports system reviewed and no additional complaints, except as documented and as per HPI Genitourinary Female Genitourinary: Reports system reviewed and no additional complaints, except as documented and Reports as per HPI Musculoskeletal Musculoskeletal: Reports system reviewed and no additional complaints, except as documented, Reports as per HPI and Reports back pain (going into left hip) Physical Exam General General appearance: alert and in no apparent distress ENT ENT exam: Present mucous membranes moist Respiratory Respiratory exam: Present normal lung sounds bilaterally; Absent respiratory distress or wheezes Cardiovascular Cardiovascular exam: Present regular rate, normal rhythm and normal heart sounds Back Exam Back exam: Present tenderness and sciatic notch tenderness (L) Back 1 view image: 2 1. reports tenderness with palpation and pain going into left hip area, Denies loss of control of bowel or bladder Neurological Exam Neurological exam: Present alert, oriented X3 and normal gait Medical Decision Making Medical Records Screening: Per USPSTF and CDC recommendations, given the prevalence of disease in our region, it is our hospital?s policy to screen for HIV and viral Hepatitis for all patients aged 18 and over and those with ongoing risk factors. Angelito Inquiry Pt receiving controlled substance: No Angelito was queried for this patient: No Vital Signs: 11/17/24 10:45 Temperature 98.1 F Temperature Source Oral Pulse Rate [Left] 75 Respiratory Rate 18 Blood Pressure [Left Arm] 112/81 Blood Pressure Mean [Left Arm] 91 Blood Pressure Source [Left Arm] Automatic Cuff Blood Pressure Position [Left Arm] Sitting 02 Sat by Pulse Oximetry 98 Oxygen Delivery Method Room Air Medical Decision Narrative: Patient states that she has taken Toradol and SoluMedrol in the past without complications or reactions
[2024-11-17] MEDS: METHYLPREDNISOLONE SOD SUCC 125MG VIAL 125 MG IM (11:15)
[2024-11-17] MEDS: KETOROLAC 60MG/2ML VIAL 60 MG IM (11:15)
[2024-11-17 11:21] VITALS: BP 112/81; PULSE 75; RESP 18; TEMP 36.7; O2SAT 98
== END 2024-11-17 11:30 | disposition home or self-care (01) ==
PROVIDERS: Emergency Provider Nurse Practitioner; PCP Family Medicine
DX: M54.32 Sciatica, left side (principal); M54.50 Low back pain, unspecified; M25.552 Pain in left hip
CPT/HCPCS: 96372; 99212; G0381; J1885; J2919